=== PATIENT | male | born 1970 | race African-American/Black ===

== ENCOUNTER 2020-10-30 10:52 | Observation (INO) ==
[2020-10-30] MEDS ORDERED: INSULIN LISPRO 100 UNIT/ML SUBCUT STA (12:11)
[2020-10-30] MEDS ORDERED: SODIUM CHLORIDE 0.9% 1,000 ML IV STA (12:12)
[2020-10-30 13:02] LABS: Calcium 8.7 MG/DL (8.5-10.1); Osmolality,Calculated 303.1 MOS/KG (273-304); Potassium 4.9 MMOL/L (3.5-5.1)
[2020-10-30 13:11] LABS: Basophils % 0.1 % (0.0-0.8); Eosinophils % 0.3 % (0.00-10.9); Hematocrit 33.7 VOL% (42.0-52.0); Hemoglobin 10.8 GM/DL (14.0-18.0); Immature Granulocytes % 0.4 %; Immature Granulocytes Absolute 0.03 #; Lymphocytes # 1.6 10*3/uL (1.4-4.0); Lymphocytes % 21.7 % (21.2-54.2); Mean Corpuscular Volume 96.3 FL (87-102); Mean Platelet Volume 9.8 FL (9.6-12.0); Monocytes % 12.1 % (1.7-12.7); Neutrophils % 65.4 % (38.7-73.9); Platelet Count 294 T/CUMM (130-400); Red Cell Distribution Width 13.1 % (9.3-17.3); White Blood Count 7.4 T/CUMM (4-12)
[2020-10-30] MEDS ORDERED: INSULIN GLARGINE 100 UNIT/ML SUBCUT SCH (13:33)
[2020-10-30] MEDS ORDERED: LACTATED RINGERS 2,000 ML IV ONE (13:33)
[2020-10-30] MEDS ORDERED: DEXTROSE 50% 25 GM/50 ML VIAL IV PRN ×3 (13:35→15:48)
[2020-10-30] MEDS ORDERED: GLUCAGON 1 MG VIAL IM PRN ×3 (13:35→15:48)
[2020-10-30 13:36] LABS: Bilirubin,Urine Negative (Negative); Blood, Urine Negative (Negative); Glucose,Urine (UA) >=500 mg/dL (Negative); Hyaline Casts,Urine 14 /LPF (0-3); Ketones,Urine 5 mg/dL (Negative); Mucus,Urine Occasional /LPF (Occasional); Nitrite,Urine Negative (Negative); Protein,Urine Negative; RBC,Urine <1 /HPF (0-4); Squamous Epithelial Cell,Urine Occasional /HPF (0-10); Urine Appearance Slightly Hazy (Clear); Urine Color Yellow (Yellow); Urine Specific Gravity 1.018 (1.001-1.035); Urine Urobilinogen < 2.0 EU/DL (0.2-1.0); WBC,Urine 1 /HPF (0-6)
[2020-10-30] MEDS ORDERED: INSULIN LISPRO 100 UNIT/ML SUBCUT SCH ×3 (14:00→17:00)
[2020-10-30] MEDS ORDERED: ACETAMINOPHEN 325 MG TABLET PO PRN (14:39)
[2020-10-30] MEDS ORDERED: ONDANSETRON 4 MG/2 ML VIAL IV PRN (14:39)
[2020-10-30] MEDS: SODIUM CHLORIDE 0.9% 1,000 ML IV SCH ×2 (16:39→22:13)
[2020-10-30] MEDS: INSULIN LISPRO 100 UNIT/ML SUBCUT SCH ×2 (16:40→22:11)
[2020-10-30] MEDS ORDERED: amLODIPine 5 MG TABLET PO ONE (20:32)
[2020-10-30] MEDS: INSULIN GLARGINE 100 UNIT/ML SUBCUT SCH (22:11)
[2020-10-31 06:14] LABS: Calcium 8.1 MG/DL (8.5-10.1); Osmolality,Calculated 278.8 MOS/KG (273-304); Potassium 3.8 MMOL/L (3.5-5.1)
[2020-10-31 07:12] LABS: Basophils % 0.2 % (0.0-0.8); Eosinophils # 0.1 10*3/uL (0.0-0.87); Eosinophils % 2.3 % (0.00-10.9); Hematocrit 30.1 VOL% (42.0-52.0); Hemoglobin 9.7 GM/DL (14.0-18.0); Immature Granulocytes % 0.2 %; Immature Granulocytes Absolute 0.01 #; Lymphocytes # 1.9 10*3/uL (1.4-4.0); Lymphocytes % 39.6 % (21.2-54.2); Mean Corpuscular HGB Conc 32.2 GM/DL (32-36); Mean Corpuscular Volume 97.1 FL (87-102); Mean Platelet Volume 9.6 FL (9.6-12.0); Neutrophils % 43.7 % (38.7-73.9); Platelet Count 242 T/CUMM (130-400); Red Cell Distribution Width 12.9 % (9.3-17.3); White Blood Count 4.7 T/CUMM (4-12)
[2020-10-31] MEDS ORDERED: ONDANSETRON 4 MG TABLET PO PRN (08:18)
[2020-10-31] MEDS ORDERED: traZODone 50 MG TABLET PO PRN (08:18)
[2020-10-31] MEDS ORDERED: NON-FORMULARY MEDICATION (Acetaminophen 650 mg Tablet) PO PRN (08:18)
[2020-10-31] MEDS: INSULIN LISPRO 100 UNIT/ML SUBCUT SCH ×2 (08:38→12:37)
[2020-10-31] MEDS ORDERED: ABACAVIR DOLUTEGRAVIR LAMIVUD PO SCH (09:00)
[2020-10-31] MEDS ORDERED: NICOTINE 14 MG/24 HR PATCH TRANSDERM SCH (09:00)
[2020-10-31] MEDS ORDERED: LOPERAMIDE 2 MG CAPSULE PO PRN (09:00)
[2020-10-31] MEDS ORDERED: SERTRALINE 100 MG TABLET PO SCH (09:00)
[2020-10-31] MEDS ORDERED: METOPROLOL TARTRATE 25 MG TABLET PO SCH (09:00)
[2020-10-31] MEDS ORDERED: TAMSULOSIN 0.4 MG CAPSULE PO SCH (09:00)
[2020-10-31] MEDS ORDERED: levETIRAcetam 500 MG TABLET PO SCH (09:00)
[2020-10-31] MEDS ORDERED: ASPIRIN CHEW 81 MG TABLET PO SCH (09:00)
[2020-10-31] MEDS ORDERED: levETIRAcetam 250 MG TABLET PO SCH (09:00)
[2020-10-31] MEDS ORDERED: SERTRALINE 25 MG TABLET PO SCH (09:00)
[2020-10-31] MEDS: GABAPENTIN 300 MG CAPSULE PO SCH ×2 (09:39→14:57)
[2020-10-31] MEDS: INSULIN GLARGINE 100 UNIT/ML SUBCUT SCH (09:41)
[2020-10-31 12:41] VITALS: BP 162/90
[2020-10-31] MEDS ORDERED: SKIN HEALING OINT (AQUAPHOR) 50 GM TUBE TOP SCH (13:00)
[2020-10-31] MEDS: SODIUM CHLORIDE 0.9% 1,000 ML IV SCH (13:56)
[2020-10-31] MEDS ORDERED: OLANZapine 2.5 MG TABLET PO SCH (21:00)
[2020-10-31] MEDS ORDERED: ATORVASTATIN 20 MG TABLET PO SCH (21:00)
== END 2020-10-31 14:55 ==
LOC: N.EDINP 10:52 → N.ED 10:52 → N.3E 15:32
PROVIDERS: ADMIT Hospitalist; ATTEND Hospitalist